=== PATIENT | female | born 1950 | race Caucasian/White ===

== ENCOUNTER 2019-06-08 08:09 | Day surgery (SDC) | payer BC ==
[~2019-06-08] VITALS: Ht 162.6 cm; Wt 124.2 kg
[~2019-06-08 08:09] MED LIST: BONIVA PO; CALTRATE-600 W600 MG PO; CENTRUM1 TAB PO; LIPITOR 10MG10 MG PO
[2019-06-08] MEDS ORDERED: LIPITOR 10MG10 MG PO (09:14)
[2019-06-08 09:15] LABS: HEMATOCRIT 42.1 % (37.0-47.0); MEAN CELL VOLUME 89 fl (80.0-100.0); MEAN CORPUSCULAR HEMOGLOBIN 30 pg (27.0-31.0); MEAN CORPUSCULAR HGB CONC 33 g/dl (33.0-37.0); MEAN PLATELET VOLUME 9.7 fl (7.4-10.4); PLATELET COUNT 266 K/mm3 (130-400); RED BLOOD COUNT 4.71 M/mm3 (4.10-5.30); REDCELL DISTRIBUTION WIDTH-CV 13.9 % (11.5-14.5)
[2019-06-08] MEDS ORDERED: [UNRECOGNIZED DRUG - OTHER] PO (09:17)
[2019-06-08] MEDS ORDERED: CALTRATE-600 W600 MG PO (09:18)
[2019-06-08] MEDS ORDERED: TOPROL XL 50MG50 MG PO (09:18)
[2019-06-08] MEDS ORDERED: LASIX 20MG TABL20 MG PO (09:19)
[2019-06-08 09:20] LABS: INR 1.9 (0.8-3.0); PROTHROMBIN TIME 22.4 SECONDS (9.7-12.8)
[2019-06-08] MEDS ORDERED: FOSAMAX 70MG TA70 MG PO (09:20)
[2019-06-08] MEDS ORDERED: ALEVE 220MG220 MG PO (09:20)
[2019-06-08 09:23] LABS: PARTIAL THROMBOPLASTIN TIME 40.5 SECONDS (26.0-37.0)
[2019-06-08] MEDS ORDERED: XARELTO20 MG PO (09:24)
[2019-06-08] MEDS ORDERED: CLARITIN 1010 MG/TAB PO (09:24)
[2019-06-08] MEDS ORDERED: FLONASEALLERGY NS (09:24)
[2019-06-08 09:27] LABS: CALCIUM 8.3 mg/dL (8.4-10.2)
[2019-06-08 09:29] LABS: CREATININE, serum 0.81 (0.52-1.25)
[2019-06-08 09:33] VITALS: BP 128/92; PULSE 127; TEMP 98.6
[2019-06-08 09:57] LABS: THYROID STIMULATING HORMONE 2.68 uIU/mL (0.465-4.680)
[2019-06-08] MEDS ORDERED: MULTAQ400 MG PO (10:23)
[2019-06-08 10:30] VITALS: BP 112/75; PULSE 96; TEMP 98.2
--- NOTE | 2019-06-08 10:30 | NUR ---
Report from Kelly AGUIRRE. Back from [facility] by cart. Alert and oriented, denies pain and needs at this time. VSS baseline. Will monitor
[2019-06-08 10:45] VITALS: BP 113/78; PULSE 100; TEMP 98.2
[2019-06-08 11:00] VITALS: BP 111/73; PULSE 700; TEMP 98.2
[2019-06-08 11:15] VITALS: BP 110/83; PULSE 108; TEMP 98.2
[2019-06-08 11:30] VITALS: BP 105/82; PULSE 98; TEMP 98.2
--- NOTE | 2019-06-08 11:34 | NUR ---
INT discontinued intact. discharge instructions given
--- NOTE | 2019-06-08 11:50 | NUR ---
Transferred to private car by andrew
== END 2019-06-08 11:45 | disposition home or self-care (01) ==
LOC: COL.CAR 08:09
PROVIDERS: Internal Medicine Cardiovascular Disease
DX: I48.0 Paroxysmal atrial fibrillation (principal); I34.0 Nonrheumatic mitral (valve) insufficiency; I10 Essential (primary) hypertension; E78.5 Hyperlipidemia, unspecified; M81.0 Age-related osteoporosis without current pathological fracture; Z79.01 Long term (current) use of anticoagulants; Z79.899 Other long term (current) drug therapy; Z82.49 Family history of ischemic heart disease and other diseases of the circulatory system
CPT/HCPCS: J2704

== ENCOUNTER 2019-06-14 09:58 | Day surgery (SDC) | payer BC ==
[~2019-06-14] VITALS: Ht 162.6 cm; Wt 125.5 kg
[~2019-06-14 09:58] MED LIST changes: +ALEVE 220MG220 MG PO; +CLARITIN 1010 MG/TAB PO; +FLONASEALLERGY NS; +FOSAMAX 70MG TA70 MG PO; +LASIX 20MG TABL20 MG PO; +LIPITOR20 MG PO; +MULTAQ400 MG PO; +TOPROL XL 50MG50 MG PO; +XARELTO20 MG PO; +[UNRECOGNIZED DRUG - OTHER] PO
[2019-06-14] MEDS ORDERED: MULTAQ400 MG PO (10:47)
[2019-06-14 10:52] VITALS: BP 143/100; PULSE 107; TEMP 98.7
[2019-06-14 11:15] LABS: HEMATOCRIT 40.6 % (37.0-47.0); HEMOGLOBIN 13.3 g/dl (12.5-16.0); MEAN CELL VOLUME 91 fl (80.0-100.0); MEAN CORPUSCULAR HEMOGLOBIN 30 pg (27.0-31.0); MEAN CORPUSCULAR HGB CONC 33 g/dl (33.0-37.0); PLATELET COUNT 253 K/mm3 (130-400); RED BLOOD COUNT 4.48 M/mm3 (4.10-5.30)
[2019-06-14 11:23] LABS: CALCIUM 8.7 mg/dL (8.4-10.2); CREATININE, serum 0.86 (0.52-1.25); POTASSIUM 4.1 mmol/L (3.4-5.0)
[2019-06-14 11:42] LABS: INR 1.8 (0.8-3.0); PROTHROMBIN TIME 21.8 SECONDS (9.7-12.8)
[2019-06-14 11:45] LABS: PARTIAL THROMBOPLASTIN TIME 39.3 SECONDS (26.0-37.0)
[2019-06-14 11:54] LABS: THYROID STIMULATING HORMONE 1.9 uIU/mL (0.465-4.680)
[2019-06-14 12:00] VITALS: BP 97/52; PULSE 60
[2019-06-14 12:15] VITALS: BP 109/61; PULSE 62
[2019-06-14 12:30] VITALS: BP 107/48; PULSE 58
[2019-06-14 12:45] VITALS: BP 113/80; PULSE 59
--- NOTE | 2019-06-14 13:00 | NUR ---
Pt returned from cardioversion at 1200, she remained in SR/SB throughout her recovery. Pt has remained awake and alert, pwd, with reg and unlabored respirations. She has been able to drink with no problem, is ambulatory with steady gait. repeat EKG has been obtained. FU and DC instructions have been reviewed without additional questions. IV was dc'd with cath intact and pt is escorted to exit via wheelchair.
== END 2019-06-14 13:00 | disposition home or self-care (01) ==
LOC: COL.CAR 09:58
PROVIDERS: Internal Medicine Cardiovascular Disease
DX: I48.0 Paroxysmal atrial fibrillation (principal); I34.1 Nonrheumatic mitral (valve) prolapse; I10 Essential (primary) hypertension; Z79.01 Long term (current) use of anticoagulants
CPT/HCPCS: J0282; J2704; J7060

== ENCOUNTER 2021-03-01 12:46 | Inpatient (IN) | payer MEDICARE, BC ==
[~2021-03-01] VITALS: Ht 160 cm; Wt 112.7 kg
[2021-03-21 09:51] LABS: INR 2.4 (0.8-3.0); PROTHROMBIN TIME 26.4 SECONDS (9.7-12.8)
[2021-03-21 09:53] LABS: BASO # 0.1 K/mm3 (0.0-0.2); BASO % 0.8 % (0.0-2.0); EOS # 0.1 K/mm3 (0.0-0.7); EOS % 1.8 % (0.0-4.0); GRAN # 4.1 K/mm3 (1.4-6.5); HEMATOCRIT 39.9 % (37.0-47.0); HEMOGLOBIN 13.2 g/dl (12.5-16.0); LYMPH # 2.5 K/mm3 (1.2-3.4); LYMPH % 34.5 % (20.0-51.0); MEAN CELL VOLUME 91 fl (80.0-100.0); MEAN CORPUSCULAR HEMOGLOBIN 30 pg (27-31); MEAN CORPUSCULAR HGB CONC 33 g/dl (33.0-37.0); MEAN PLATELET VOLUME 10.4 fl (7.4-10.4); MONO # 0.5 K/mm3 (0.1-0.6); MONO % 6.6 % (1.7-9.3); PLATELET COUNT 277 K/mm3 (130-400); RED BLOOD COUNT 4.39 M/mm3 (4.10-5.30); REDCELL DISTRIBUTION WIDTH-CV 13.7 % (11.5-14.5)
[2021-03-21 10:01] LABS: ALBUMIN 3.7 gm/dL (3.4-4.8); BILIRUBIN,TOTAL 0.7 mg/dL (0.2-1.2); CALCIUM 8.6 mg/dL (8.4-10.2); CREATININE, serum 0.83 mg/dL (0.57-1.11); MAGNESIUM 1.9 mg/dL (1.6-2.6); POTASSIUM 3.8 mmol/L (3.5-4.5); TOTAL PROTEIN 6.7 gm/dL (6.2-8.1)
[2021-03-21] MEDS ORDERED: TYLENOL PM EXTR1 TA1 PO (10:07)
[2021-03-21] MEDS ORDERED: KLOR-CON SPRIN10 MEQ PO (10:12)
[2021-03-21] MEDS ORDERED: PROAIR HFA0.09 MG/AC IH (10:13)
[2021-03-21] MEDS ORDERED: MULTI VITAMINS1 TAB PO (10:13)
[2021-03-21 12:20] VITALS: BP 139/75; PULSE 97; TEMP 97.8
[2021-03-21 16:28] VITALS: BP 138/80; PULSE 98; TEMP 98.5
[2021-03-21 19:41] VITALS: BP 124/75; PULSE 97; TEMP 97.8
[2021-03-22] VITALS (7 sets, daily range): BP systolic 124–139; BP diastolic 42–84; PULSE 92–102; TEMP 97.6–98.2
[2021-03-22 06:36] LABS: BASO # 0.1 K/mm3 (0.0-0.2); BASO % 0.8 % (0.0-2.0); EOS # 0.2 K/mm3 (0.0-0.7); EOS % 2.5 % (0.0-4.0); GRAN # 3.1 K/mm3 (1.4-6.5); GRAN % 51.6 % (42.2-75.2); HEMATOCRIT 38.9 % (37.0-47.0); HEMOGLOBIN 12.9 g/dl (12.5-16.0); LYMPH # 2.3 K/mm3 (1.2-3.4); LYMPH % 37.2 % (20.0-51.0); MEAN CELL VOLUME 92 fl (80.0-100.0); MEAN CORPUSCULAR HEMOGLOBIN 31 pg (27-31); MEAN CORPUSCULAR HGB CONC 33 g/dl (33.0-37.0); MEAN PLATELET VOLUME 10.3 fl (7.4-10.4); MONO # 0.5 K/mm3 (0.1-0.6); MONO % 7.6 % (1.7-9.3); PLATELET COUNT 239 K/mm3 (130-400); RED BLOOD COUNT 4.23 M/mm3 (4.10-5.30); REDCELL DISTRIBUTION WIDTH-CV 13.7 % (11.5-14.5)
[2021-03-22 06:53] LABS: CALCIUM 8.2 mg/dL (8.4-10.2); CREATININE, serum 0.77 mg/dL (0.57-1.11); MAGNESIUM 1.8 mg/dL (1.6-2.6); POTASSIUM 3.5 mmol/L (3.5-4.5)
[2021-03-23] VITALS (8 sets, daily range): BP systolic 111–136; BP diastolic 50–74; PULSE 62–126; TEMP 97.8–98
[2021-03-23 06:49] LABS: BASO # 0.1 K/mm3 (0.0-0.2); BASO % 0.9 % (0.0-2.0); EOS # 0.2 K/mm3 (0.0-0.7); EOS % 2.4 % (0.0-4.0); GRAN # 3.6 K/mm3 (1.4-6.5); GRAN % 51.3 % (42.2-75.2); HEMATOCRIT 42.9 % (37.0-47.0); HEMOGLOBIN 13.9 g/dl (12.5-16.0); LYMPH # 2.7 K/mm3 (1.2-3.4); LYMPH % 38.5 % (20.0-51.0); MEAN CELL VOLUME 93 fl (80.0-100.0); MEAN CORPUSCULAR HEMOGLOBIN 30 pg (27-31); MEAN CORPUSCULAR HGB CONC 32 g/dl (33.0-37.0); MEAN PLATELET VOLUME 10.5 fl (7.4-10.4); MONO # 0.5 K/mm3 (0.1-0.6); MONO % 6.6 % (1.7-9.3); PLATELET COUNT 295 K/mm3 (130-400); RED BLOOD COUNT 4.64 M/mm3 (4.10-5.30); REDCELL DISTRIBUTION WIDTH-CV 13.8 % (11.5-14.5)
[2021-03-23 07:44] LABS: CALCIUM 8.5 mg/dL (8.4-10.2); CREATININE, serum 0.82 mg/dL (0.57-1.11); POTASSIUM 3.5 mmol/L (3.5-4.5)
[2021-03-23] MEDS ORDERED: BETAPACE 120MG120 MG PO (09:05)
== END 2021-03-23 13:26 | disposition home or self-care (01) | DRG 310 ==
LOC: MEDICAL 03-07 12:45
PROVIDERS: ADMIT Internal Medicine Cardiovascular Disease
PROC: 5A2204Z Restoration of Cardiac Rhythm, Single (ICD-10-PCS; principal; 2021-03-21)
DX: I48.0 Paroxysmal atrial fibrillation (principal); I10 Essential (primary) hypertension; Z79.01 Long term (current) use of anticoagulants; Z23 Encounter for immunization
CPT/HCPCS: J2704

== ENCOUNTER 2021-04-23 15:49 | Observation (INO) | payer MEDICARE, BC ==
[~2021-04-23] VITALS: Ht 160 cm; Wt 111.4 kg
[~2021-04-23 15:49] MED LIST changes: +BETAPACE 120MG120 MG PO; +KLOR-CON SPRIN10 MEQ PO; +MULTI VITAMINS1 TAB PO; +PROAIR HFA0.09 MG/AC IH; +TYLENOL PM EXTR1 TA1 PO
[2021-04-23 16:41] LABS: BASO # 0.1 K/mm3 (0.0-0.2); BASO % 0.9 % (0.0-2.0); EOS # 0.2 K/mm3 (0.0-0.7); EOS % 1.6 % (0.0-4.0); GRAN # 4.9 K/mm3 (1.4-6.5); GRAN % 49.9 % (42.2-75.2); HEMATOCRIT 46.1 % (37.0-47.0); HEMOGLOBIN 15.4 g/dl (12.5-16.0); LYMPH # 3.9 K/mm3 (1.2-3.4); LYMPH % 39.5 % (20.0-51.0); MEAN CELL VOLUME 90 fl (80.0-100.0); MEAN CORPUSCULAR HEMOGLOBIN 30 pg (27-31); MEAN CORPUSCULAR HGB CONC 33 g/dl (33.0-37.0); MEAN PLATELET VOLUME 10.2 fl (7.4-10.4); MONO # 0.8 K/mm3 (0.1-0.6); MONO % 7.9 % (1.7-9.3); PLATELET COUNT 337 K/mm3 (130-400); RED BLOOD COUNT 5.13 M/mm3 (4.10-5.30); REDCELL DISTRIBUTION WIDTH-CV 13.3 % (11.5-14.5)
[2021-04-23 16:43] LABS: INR 1.4 (0.8-3.0); PROTHROMBIN TIME 15.2 SECONDS (9.7-12.8)
[2021-04-23 16:46] LABS: PARTIAL THROMBOPLASTIN TIME 37.1 SECONDS (26.0-37.0)
[2021-04-23 16:53] LABS: ALANINE AMINOTRANSFERASE 28 U/L (0-55); ALKALINE PHOSPHATASE 102 U/L (40-150); ANION GAP 12 mmol/L (7-16); AST,SGOT 24 U/L (5-34); BILIRUBIN,TOTAL 0.5 mg/dL (0.2-1.2); BLOOD UREA NITROGEN 11 mg/dL (10-20); CALCIUM 9.1 mg/dL (8.4-10.2); CARBON DIOXIDE 25 mmol/L (23-31); CHLORIDE 104 mmol/L (98-107); CREATININE, serum 0.83 mg/dL (0.57-1.11); GLUCOSE 102 mg/dL (70-99); POTASSIUM 3.8 mmol/L (3.5-4.5); SODIUM 141 mmol/L (136-145); TOTAL PROTEIN 7.7 gm/dL (6.2-8.1)
[2021-04-23 16:59] LABS: TROPONIN-I < 0.010 ng/mL (0.00-0.033)
[2021-04-23 18:51] LABS: MAGNESIUM 1.9 mg/dL (1.6-2.6)
[2021-04-23 19:11] LABS: TSH w REFLEX 2.261 uIU/mL (0.350-4.940)
[2021-04-23 20:50] VITALS: BP 137/66; PULSE 96; TEMP 97.4
[2021-04-23] MEDS ORDERED: BETAPACE 120MG120 MG PO (22:38)
[2021-04-23] MEDS ORDERED: BETAPACE 80MG80 MG PO (22:39)
[2021-04-23 23:47] VITALS: BP 121/58; PULSE 83; TEMP 97.9
[2021-04-24 04:33] VITALS: BP 106/52; PULSE 73; TEMP 97.7
[2021-04-24 06:56] LABS: BASO # 0.1 K/mm3 (0.0-0.2); BASO % 0.7 % (0.0-2.0); EOS # 0.2 K/mm3 (0.0-0.7); EOS % 2.3 % (0.0-4.0); GRAN # 4.3 K/mm3 (1.4-6.5); GRAN % 51.4 % (42.2-75.2); HEMATOCRIT 42.3 % (37.0-47.0); HEMOGLOBIN 14.1 g/dl (12.5-16.0); LYMPH # 3.2 K/mm3 (1.2-3.4); LYMPH % 37.9 % (20.0-51.0); MEAN CELL VOLUME 91 fl (80.0-100.0); MEAN CORPUSCULAR HEMOGLOBIN 30 pg (27-31); MEAN CORPUSCULAR HGB CONC 33 g/dl (33.0-37.0); MEAN PLATELET VOLUME 10.4 fl (7.4-10.4); MONO # 0.6 K/mm3 (0.1-0.6); MONO % 7.6 % (1.7-9.3); PLATELET COUNT 279 K/mm3 (130-400); RED BLOOD COUNT 4.67 M/mm3 (4.10-5.30); REDCELL DISTRIBUTION WIDTH-CV 13.4 % (11.5-14.5)
[2021-04-24 07:05] LABS: CALCIUM 8.5 mg/dL (8.4-10.2); CREATININE, serum 0.81 mg/dL (0.57-1.11); POTASSIUM 3.8 mmol/L (3.5-4.5)
[2021-04-24 08:05] LABS: INR 2.6 (0.8-3.0); PROTHROMBIN TIME 29.6 SECONDS (9.7-12.8)
[2021-04-24 08:11] VITALS: BP 122/51; PULSE 77; TEMP 97.9
[2021-04-24 12:10] VITALS: BP 123/56; PULSE 82; TEMP 98
[2021-04-24 16:13] VITALS: BP 120/55; PULSE 63; TEMP 98.5
[2021-04-24 20:54] VITALS: BP 119/80; PULSE 92; TEMP 97.5
[2021-04-25 00:51] VITALS: BP 117/48; BP 17/48; PULSE 79; TEMP 97.8
[2021-04-25 04:52] VITALS: BP 131/63; PULSE 85; TEMP 97.7
[2021-04-25 06:41] LABS: CALCIUM 8.4 mg/dL (8.4-10.2); CREATININE, serum 0.76 mg/dL (0.57-1.11); MAGNESIUM 1.8 mg/dL (1.6-2.6); POTASSIUM 3.8 mmol/L (3.5-4.5)
[2021-04-25 07:38] VITALS: BP 122/57; PULSE 101; TEMP 97.4
[2021-04-25 11:46] VITALS: BP 107/62; PULSE 91; TEMP 98.3
[2021-04-25] MEDS ORDERED: CARDIZEM CD 24240 MG PO (15:57)
== END 2021-04-25 16:40 | disposition home or self-care (01) ==
LOC: COL.ER 15:49 → MEDICAL 18:17
PROVIDERS: Family Medicine; Internal Medicine; Student in an Organized Health Care Education/Training Program; ADMIT Internal Medicine
DX: I48.0 Paroxysmal atrial fibrillation (principal); E78.5 Hyperlipidemia, unspecified; I10 Essential (primary) hypertension; J30.2 Other seasonal allergic rhinitis; I07.1 Rheumatic tricuspid insufficiency; I51.7 Cardiomegaly; Z79.899 Other long term (current) drug therapy; Z79.01 Long term (current) use of anticoagulants
CPT/HCPCS: 99239; G0378; J3475

== ENCOUNTER 2021-05-24 07:53 | Day surgery (SDC) | payer MEDICARE, BC ==
[~2021-05-24] VITALS: Ht 160.1 cm; Wt 115.7 kg
[~2021-05-24 07:53] MED LIST changes: +CARDIZEM CD 24240 MG PO
[2021-05-24] MEDS ORDERED: CARDIZEM CD 24240 MG PO (08:50)
[2021-05-24] MEDS ORDERED: BETAPACE 80MG80 MG PO (08:58)
[2021-05-24 09:01] VITALS: BP 135/72; PULSE 68; TEMP 98.6
[2021-05-24] MEDS ORDERED: CEPHALEXIN500 M1 PO (09:23)
[2021-05-24 09:52] VITALS: BP 147/70; PULSE 63
--- NOTE | 2021-05-24 10:30 | NUR ---
Discharge instructions given to pt.Pt verbalizes understanding.Pt escorted out via ambulatory by this nurse.
== END 2021-05-24 13:14 ==
LOC: COL.CAR 07:53
DX: I48.91 Unspecified atrial fibrillation (principal); Z79.899 Other long term (current) drug therapy; I10 Essential (primary) hypertension; Z79.01 Long term (current) use of anticoagulants
CPT/HCPCS: 27886; C1764

== ENCOUNTER → 2021-07-10 | Day surgery (SDC) | payer MEDICARE, BC ==
[~2021-07-10] VITALS: Ht 160 cm; Wt 115.9 kg
[2021-07-10] VITALS (10 sets, daily range): BP systolic 104–142; BP diastolic 44–82; PULSE 80–98; TEMP 98.6
[~2021-07-10] MED LIST changes: +BETAPACE 80MG80 MG PO; +CEPHALEXIN500 M1 PO; +CORDARONE200 MG/TAB PO
[2021-07-10 12:25] LABS: BASO # 0.1 K/mm3 (0.0-0.2); BASO % 1.2 % (0.0-2.0); EOS # 0.1 K/mm3 (0.0-0.7); EOS % 1.6 % (0.0-4.0); GRAN % 54.8 % (42.2-75.2); HEMATOCRIT 41.3 % (37.0-47.0); HEMOGLOBIN 13.7 g/dl (12.5-16.0); LYMPH # 2.6 K/mm3 (1.2-3.4); LYMPH % 35.1 % (20.0-51.0); MEAN CELL VOLUME 92 fl (80.0-100.0); MEAN CORPUSCULAR HEMOGLOBIN 31 pg (27-31); MEAN CORPUSCULAR HGB CONC 33 g/dl (33.0-37.0); MEAN PLATELET VOLUME 9.5 fl (7.4-10.4); MONO # 0.5 K/mm3 (0.1-0.6); PLATELET COUNT 314 K/mm3 (130-400); RED BLOOD COUNT 4.49 M/mm3 (4.10-5.30); REDCELL DISTRIBUTION WIDTH-CV 13.2 % (11.5-14.5)
[2021-07-10 12:37] LABS: INR 1.7 (0.8-3.0); PROTHROMBIN TIME 19.5 SECONDS (9.7-12.8)
[2021-07-10 12:40] LABS: PARTIAL THROMBOPLASTIN TIME 33.8 SECONDS (26.0-37.0)
[2021-07-10 12:41] LABS: CALCIUM 8.8 mg/dL (8.4-10.2); CREATININE, serum 0.84 mg/dL (0.57-1.11); POTASSIUM 3.9 mmol/L (3.5-4.5)
[2021-07-10 13:01] LABS: THYROID STIMULATING HORMONE 2.733 uIU/mL (0.350-4.940)
--- NOTE | 2021-07-10 16:20 | NUR ---
Pt tolerated CV without complication, pt discharged via wheelchair, staff escorted pt to exit.
== END ==
LOC: COL.CAR 11:36
PROVIDERS: Internal Medicine Cardiovascular Disease
DX: I48.19 Other persistent atrial fibrillation (principal); I10 Essential (primary) hypertension; I34.0 Nonrheumatic mitral (valve) insufficiency; E78.2 Mixed hyperlipidemia; Z79.01 Long term (current) use of anticoagulants; Z79.899 Other long term (current) drug therapy; Z95.818 Presence of other cardiac implants and grafts
CPT/HCPCS: J2704